=== PATIENT | female | born 1945 | race Caucasian/White ===

== ENCOUNTER 2024-12-21 12:13 | Emergency (ER) | payer MEDICARE, OTHER, SELFPAY ==
--- OUTSIDE RECORDS SUMMARY | 2024-12-15 10:00 | XMS_ITS | Encounter Summary ---
Author Organization [facility] Address [address] [place] [address] Care Team Providers Care It Operations Manager Name Role Phone Evan Johnson MD Primary Care Provider [phone] Reason for Referral * Consultation (Routine) - Authorized Specialty Diagnoses / Procedures Referred By Contac t Referred To Contact Cardiology Diagnoses Chest discomfort Evan Johnson MD [address] [place] [phone] Phone: tel: fax: [facility] - [facility] [address] [facility] [address] [place] [address] Phone: tel: fax: Referral ID Status Reason Start Date Expiration Date Visits Requested Visits Authorized [id number] Authorized Specialty Services Required 12/15/2025 1 1 Reason for Visit * Reason Comments Follow-up Encounter Details Date Type Department Care Team ([facility] st Contact Info) Description 12/15/2024 11:00 AM EDT Office Visit Adult Medicine [address] [phone] Evan Johnson MD [address] [place] [phone] Controlled diabetes mellitus type II without complication (CMS/HCC V24, CMS/HCC V28) (Primary Dx); Essential hypertension, benign; Pure hypercholesterolemia; Chest discomfort Social History Tobacco Use Types Packs/Day Years Used Date Smoking Tobacco: Former Cigarettes Q uit: 02/18/1985 Smokeless Tobacco: Never Alcohol Use Standard Drinks/Week Comments No 0 (1 standard drink = 0.6 oz pur e alcohol) Comments No Sex and Gender Information Value Date Recorded Sex Assigned at Not on file Legal Sex Female 3:56 PM EST Gender Identity Not on file Sexual Orientation Not on file documented as of this encounter Last Filed Vital Signs Vital Sign Reading Time Taken Comments Blood Pressure 138/68 12/15/2024 11:00 AM EDT Pulse 80 12/15/2024 11:00 AM EDT Temperature 36.7 C (98 F) 12/15/2024 11:00 AM EDT Respiratory Rate 16 12/15/2024 11:00 AM EDT Oxygen Saturation 97% 12/15/2024 11:00 AM EDT Inhaled Oxygen Concentration - - Weight 75.3 kg (166 lb) 12/15/2024 11:00 AM EDT Height 170.2 cm (5' 7 ) 12/15/2024 11:00 AM EDT Body Mass Index 26 12/15/2024 11:00 AM EDT documented in this encounter Progress Notes * Shaun Lubin MA - 12/15/2024 11:00 AM EDTAddended by: SHAUN LUBIN on: 12/21/2024 09:10 AM Modules accepted: Orders * Evan Johnson MD - 12/15/2024 11:00 AM EDT CHIEF COMPLAINT: Follow-up IDENTIFIER: Mayra Rocha is a 79 y.o. old female. HPI: Pt presents for evaluation of multiple medical problems. Patient reported few episodes of chest discomfort. Its short lasting, after/during strenuous physical activities, pulling bushes and removing heavy leaves. Patient described the sensation as somewhatburning, lasting short duration with quick resolution. There is no palpitation, dizziness. Patient d enied paroxysmal nocturnal dyspnea increased lower extremity edema. Patient happy that she had successful uneventful cataract surgery. She is compliant with her medications. ROS: GENERAL: Negative for malaise, significant weight loss and fever RESPIRATORY: No cough, wheezing or shortness of breath CARDIOVASCULAR: Negative for chest pain, leg swelling and palpitations GI: Negative for abdominal discomfort, changes in bowel habits, blood in stool or black stools ENDOCRINE: Negative for cold or heat intolerance, polyuria, polydipsia and goiter, See HPI NEURO: No persistent headache, fainting, seizures, strokes, TIAs, weakness, numbness or tingling PAST MEDICAL HISTORY: Patient Active Problem List Diagnosis Date Noted Microalbuminuria 06/15/2024 Overweight 07/12/2017 Obstructive sleep apnea 10/16/2011 Depressive disorder 06/18/2011 Obsessive-compulsive disorder 06/18/2011 Diverticulitis 09/14/2009 Pure hypercholesterolemia 05/21/2005 Controlled diabetes mellitus type II without complication ([facility] V24, [facility] V28) 01/18/2005 Esophageal reflux 01/18/2005 Essential hypertension, benign 01/18/2005 SOCIAL HISTORY: Social History Tobacco Use Smoking status: Former Current packs/day: 0.00 Types: Cigarettes Quit date: 02/18/1985 Years since quittin.8 Smokeless tobacco: Never Substance Use Topics Alcohol use: No FAMILY HISTORY: Family Status Relation Name Status Mother Father Sister dx'd 78 Alive Daughter (Not Specified) MGM (Not Specified) MGF (Not Specified) PGM (Not Specified) PGF (Not Specified) Aunt (Not Specified) Other (Not Specified) Neg Hx (Not Specified) No partnership data on file Family History[1] ACTIVE MEDICATIONS: Medications Taking[2] ALLERGIES: Codeine, Cyclosporine, Epinephrine, Hydromorphone hcl, Lisinopril, Meperidine hcl, Oxycodone-acetaminophen, Phenazopyridine hcl, Propoxyphene hcl, and Sulfa (sulfonamide antibiotics) PHYSICAL EXAM: Blood pressure 138/68, pulse 80, temperature 36.7 ??C (98 ??F), temperature source Temporal, resp. rate 16, height 1.702 m (67 ), weight 75.3 kg (166 lb), SpO2 97%. Body mass index is 26 kg/m??. BMI is greater than 25.0 (above the normal range) - see Plan APPEARANCE: Alert and in no acute distress, smiling, well hydrated, well groomed HEART: Normal S1-S2 LUNG: clear to auscultation bilaterally ABDOMEN: Bowel sounds normoactive, no bruits, soft, non-tender, without organomegaly or palpable masses, and no focal epigastric pain pressure to the epigastrium does not reproduce the burning sensation EXTREMITIES: No edema NEURO: Awake, alert and oriented x 3, reflexes symmetrical, and grossly nonfocal examination SKIN: Skin color, texture, turgor normal. No rashes or lesions. LABS: No results found for: WBC , HGB , HCT , MCV , PLT Lab Results Component Value Date GLUCOSE 129 (H) 06/01/2024 CALCIUM 9.5 06/01/2024 NA 137 06/01/2024 K 4.5 06/01/2024 CO2 27 06/01/2024 CL 105 06/01/2024 BUN 20 06/01/2024 CREATININE 0.83 06/01/2024 Lab Results Component Value Date HGBA1C 6.6 (H) 06/01/2024 HGBA1C 6.5 (H) 01/01/2024 Lab Results Component Value Date MICROALBUR 135.0 (H) 06/01/2024 LDLCALC 52 06/01/2024 CREATININE 0.83 06/01/2024 MICROALBCREA 81 (H) 06/01/2024 Wt Readings from Last 6 Encounters: 12/15/24 75.3 kg (166 lb) 10/07/24 77.1 kg (170 lb) 08/31/24 77.1 kg (170 lb) 06/15/24 77.1 kg (170 lb) 01/14/24 78.5 kg (173 lb) 08/29/23 83.6 kg (184 lb 3.2 oz) BP Readings from Last 6 Encounters: 12/15/24 138/68 10/07/24 139/69 08/31/24 (!) 149/73 06/15/24 128/60 01/14/24 132/54 08/29/23 128/65 EKG in my office showed a normal sinus rhythm and nonspecific ST-T changes. IMPRESSION: No diagnosis found. PLAN: Pt presents for evaluation of multiple medical problems. Patient reported few episodes of chest discomfort. Its short lasting, after/during strenuous physical activities, pulling bushes and removing heavy leaves. Patient described the sensation as somewhatburning, lasting short duration with quick resolution. There is no palpitation, dizziness. Patient d enied paroxysmal nocturnal dyspnea increased lower extremity edema. Patient happy that she had successful uneventful cataract surgery. She is compliant with her medications. 1 I do have concern, significant concern regarding patient's exertional discomfort, chest discomfort described as burning , although I cannot rule out other etiology including muscular skeletal painwith heavy pulling, usually is not described as burning. I proceeded with discussion regarding my concern with patient multiple risk factors, and sometimes cardiac ischemia presents in a typical way for female patient. At the very beginning patient was quite resistant telling me that she has medical knowledge and she feels perfectly fine. After extensive discussion the patient finally agreed for referral to cardiology as a second opinion . Patient declined arrangement for stress testing. I want the patient to avoid strenuous activities, including removing leaves and Brocious as part ofher fall cleanup. We discussed secondary prevention please see below,Warning symptoms discussed that would need immediate reevaluation, including ER visit. 2 mild diabetes, overall well-controlled. Displayed a significant role in my concern for occult occlusive vascular disease. We discussed the diabetic routine care. 3 Patient also presents for a blood pressure check. Patient is tolerating medications well. No specific side effects or complains. Patient is proper medication aimed at maximum protection. 4 I will continue statin Addendum, I reviewed the patient's A1c after completion today, it remains well-controlled. Lab Results Component Value Date HGBA1C 6.5 (H) 12/15/2024 HGBA1C 6.6 (H) 06/01/2024 HGBA1C 6.5 (H) 01/01/2024 No orders of the defined types were placed in this encounter. ADDITIONAL ORDERS: None Evan Johnson MD on 12/15/2024 at 11:24 AM EDT [1] Family History Problem Relation Name Age of Onset Mental illness Mother Diabetes Mother ?BORDERLINE No Known Problems Father Breast cancer Sister dx'd 78 Other (Other: lupus) Daughter Colon cancer Maternal Grandmother No Known Problems Maternal Grandfather No Known Problems Paternal Grandmother No Known Problems Paternal Grandfather Colon cancer Aunt mat side No Known Problems Other Ovarian cancer Neg Hx Uterine cancer Neg Hx [2] Outpatient Medications Marked as Taking for the 12/15/24 encounter (Office Visit) with Evan Johnson MD Medication Sig Dispense Refill amLODIPine (NORVASC) 2.5 mg tablet TAKE 1 TABLET BY MOUTH DAILY. IN ADDITION TO THE 5 MG DAILY FOR A TOTAL OF 7.5 MG DAILY. 90 tablet 1 amLODIPine (NORVASC) 5 mg tablet TAKE 1 TABLET BY MOUTH DAILY. TAKE WITH 2.5 MG FOR A TOTAL DAILY DOSE OF 7.5 MG 90 tablet 1 aspirin 81 mg chewable tablet Chew. B complex-vitamin C-folic acid (ENSSA-EDUARDO) 1-60-300 mg-mg-mcg tablet Take 1 tablet by mouth 1 (one)time each day with breakfast. blood-glucose meter kit Use to test blood sugar three times daily cholecalciferol (VITAMIN D-3) 50 mcg (2,000 unit) capsule Take 1 capsule (2,000 Units total) by mouth 1 (one) time each day. CYANOCOBALAMIN, VITAMIN B-12, ORAL Take by mouth. FLUoxetine (PROzac) 40 mg capsule TAKE 1 CAPSULE BY MOUTH EVERY DAY 90 capsule 1 fluticasone propionate (FLONASE) 50 mcg/actuation nasal spray Administer 2 sprays into affected nostril(s). ketorolac (ACULAR) 0.5 % ophthalmic solution INSTILL 1 DROP INTO LEFT EYE FOUR TIMES A DAY START 2 DAYS BEFORE SURGERY metFORMIN XR (GLUCOPHAGE-XR) 500 mg 24 hr tablet TAKE 2 TABLETS BY MOUTH TWICE A DAY WITH MEALS 360tablet 1 metoprolol succinate (TOPROL-XL) 25 mg 24 hr tablet TAKE 1 TABLET BY MOUTH EVERY DAY 90 tablet 1 Mounjaro 5 mg/0.5 mL injection omeprazole (PriLOSEC) [address] capsule TAKE 1 CAPSULE BY MOUTH EVERY DAY 90 capsule 1 Oxygen Therapy via Nasal Cannula (O2) gas Inhale continuously. via nasal canula simvastatin (ZOCOR) 20 mg tablet TAKE 1 TABLET BY MOUTH EVERYDAY AT BEDTIME 90 tablet 1 valsartan (DIOVAN) 80 mg tablet TAKE 1 TABLET BY MOUTH TWICE A DAY 180 tablet 1 documented in this encounter Plan of Treatment Upcoming Encounters Date Type Department Care Team (Late st Contact Info) Description 03/17/2025 10:15 AM EST Office Visit Adult Medicine [facility] [address] [place], [place] [phone] Siddharth Akins NP [address] [place], [place] 10/07/2025 10:00 AM EDT Office Visit Pulmonology - [place] [address] [facility] [address] [place] [phone] Abby Green MD [address] [place] [phone] Scheduled Orders Name Type Priority Associated Diagnoses Orde r Schedule ECG 12 lead ECG Routine Chest discomfort Ordered: 12/21/2024 Scheduled Referrals Name Type Priority Associated Diagnoses Order Schedule Ambulatory referral to Cardiology Outpatient Referral Routine Chest discomfort Expected: 12/22/2024, Expires: 12/15/2025 documented as of this encounter Results * (ABNORMAL) Hemoglobin A1c (12/15/2024 12:08 PM EDT) Hemoglobin A1C 6.5(H) <6.5 % LAB CHEMISTRY METHOD 12/15/2024 2:37 PM EDT [facility] Mean Bld Glu Estim. 140 mg/dL LAB CHEMISTRY METHOD 12/15/2024 2:37 PM EDT [facility] Blood Venous blood specimen / Unknown Venipuncture / Unknown 12/15/2024 12:08 PM EDT 12/15/2024 12:08 PM EDT Evan Johnson MD LAB BLOOD ORDERABLES Final Resul t [facility] [address] [place] [address], documented in this encounter Visit Diagnoses Diagnosis Controlled diabetes mellitus type II without complication (CMS/HCC V24, CMS/HCC V28)- Primary Essential hypertension, benign Pure hypercholesterolemia Chest discomfort Other chest pain documented in this encounter Discontinued Medications Medication Sig Discontinue Reason Start Date End Da te doxycycline (MONODOX) 100 mg capsule Therapy completed 02/09/2023 12/15/2024 moxifloxacin (VIGAMOX) 0.5 % ophthalmic solution INSTILL 1 DROP INTO LEFT EYE FOUR TIMES A DAY START 1 DAY BEFORE SURGERY Therapy completed 09/07/2024 12/15/2024 Trulicity 0.75 mg/0.5 mL pen injector injection Therapy completed 04/12/2023 025 Trulicity 1.5 mg/0.5 mL pen injector injection Inject 0.5 mL (1.5 mg total) under the skin every 7 (seven) days. Therapy completed 01/01/2023 12/15/2024 Trulicity 3 mg/0.5 mL pen injector injection Therapy completed 06/25/2023 025 vitamin C tablet Take 1 tablet (100 mg total) by mouth 1 (one) time each day. Therapy completed 12/15/2024 documented as of this encounter Care Teams It Operations Manager Relationship Specialty Start Date End Date Evan Johnson MD [address] [place] [address] PCP - General 08/18[birth year]1992 documented as of this encounter
--- NOTE | ~2024-12-21 | CT_ITS ---
CLINICAL HISTORY: left abdominal pain, Hx perforated diverticular d Exam: Contrast-enhanced CT abdomen and pelvis with multiplanar reformats. Comparison: None. Findings: CT abdomen: Lung bases are clear. Liver is free of focal lesions and ductal dilatation. Gallbladder appears unremarkable. Spleen is unremarkable. Pancreas and adrenal glands appear unremarkable. Right kidney reveals a 19 mm upper pole exophytic cyst (4; 212, 5 Hounsfield units). Kidneys otherwise unremarkable. No urolithiasis or hydroureteronephrosis. No free intraperitoneal fluid or retroperitoneal masses or adenopathy. Abdominal aorta is normal caliber with moderate calcific atherosclerosis. Bowel loops reveal no abnormal wall thickening or distention. Remote changes related to partial sigmoid colonic resection are present. Colonic diverticulosis is present, without definitive CT evidence of diverticulitis. There may be a very slightly inflamed epiploic appendage at the level of the splenic flexure of the colon (3; 32 -28 and 4; 245-229), suggesting very mild epiploic appendagitis. CT pelvis: Uterus and adnexal structures appear unremarkable. Urinary bladder is free of gross filling defects. No pelvic masses, fluid or adenopathy. Osseous structures reveal no destructive osseous lesions. Impression: 1. Evidence of mild epiploic appendagitis involving the splenic flexure of the colon. Otherwise, colonic diverticulosis is present, without CT evidence of diverticulitis. This document has been electronically signed by: Khalif Bray MD on 12/21/2024 19:58:01
[2024-12-21 12:52] VITALS: BP 153/66; PULSE 71; RESP 16; TEMP 36.2; O2SAT 97; BMI 26.2
--- NOTE | 2024-12-21 12:52 | ED.GENADULT ---
HPI - General Adult General Chief complaint: Abdominal Pain Stated complaint: Discomfort l calf, multi comp? Time Seen by Provider: 12/21/24 18:20 Source: patient Mode of arrival: ambulatory Limitations: no limitations History of Present Illness ED Provider: DR. Hernandez HPI narrative: 79-year-old female PMH significant for hypertension, diverticular disease. S/p colectomy secondary to perforated diverticulitis few years ago, no other intra-abdominal surgeries patient presented today for evaluation of 2 days of intra-abdominal pain mostly to the left side that is started 2 days ago, no fever, no chills, no nausea, no vomiting, last bowel movement was this morning, passing flatus normally. no dysuria, no frequency urination, no hematuria. Related Data Allergies Allergy/AdvReac Type Severity Reaction Status Date / Time acetaminophen (From Percocet) Allergy Mild UNKNOWN Unverified 11/05/19 14:51 codeine (Codeine) Allergy Mild UNKNOWN Unverified 11/05/19 14:51 epinephrine (Epinephrine) Allergy Mild UNKNOWN Unverified 11/05/19 14:51 lisinopril (Lisinopril) Allergy Mild UNKNOWN Unverified 11/05/19 14:51 meperidine (From Demerol) Allergy Mild UNKNOWN Unverified 11/05/19 14:51 oxycodone (From Percocet) Allergy Mild UNKNOWN Unverified 11/05/19 14:51 propoxyphene (From Darvon) Allergy Mild UNKNOWN Unverified 11/05/19 14:51 Sulfa (Sulfonamide Allergy Vomiting Verified 12/21/24 12:54 Antibiotics) Review of Systems Review of Systems: All other systems are reviewed and are negative Constitutional: Reports as per HPI and Reports no additional constitutional complaints Eyes: Reports as per HPI and Reports no additional eye complaints Reports system reviewed and no additional complaints, except as documented Cardiovascular: Reports as per HPI and Reports no additional cardiovascular complaints Respiratory: Reports as per HPI and Reports no additional respiratory complaints Gastrointestinal: Reports as per HPI and Reports no additional gastrointestinal complaints Genitourinary: Reports no additional female genitourinary complaints Musculoskeletal: Reports no additional musculoskeletal complaints Skin/Breast: Reports system reviewed and no additional complaints, except as docu Psychiatric: Reports no additional psychiatric complaints Endocrine: Reports no additional endocrine complaints Hematologic/Lymphatic: Reports no additional hematologic/lymphatic complaints Allergic/Immunologic: Reports no additional allergic/immunologic complaints Reports system reviewed and no additional complaints, except as documented and Reports Abnormal speech present [facility] Social History Social History Smoked in Last 30 Days: No Use of substances other than those prescribed or required for medical reasons: No Advance Directives: No Advance Directives Information Provided: Yes Physical Exam ED Vital Signs: Vital Signs - 24 hr 12/21/24 12:52 12/21/24 18:06 Temperature 97.2 F 98.0 F Pulse Rate 71 71 Respiratory Rate 16 16 Blood Pressure 153/66 H 173/69 H Pulse Oximetry 97 97 Oxygen Delivery Method Room Air Room Air BMI result Body Mass Index 26.2 Vital signs have been reviewed and appear to be correct. Blood pressure elevated. Heart rate normal. Respiratory rate normal. Temperature normal. Oxygen saturation normal. Appearance: Alert. Oriented X3. No acute distress. Head: Normal external exam. Normocephalic. Atraumatic. No Arzola signs noted. No raccoon eyes noted Eyes: PERRLA. EOMI. Conjunctiva and sclera normal. Eyelids normal. ENT: TM's Normal. Pharynx normal. Uvula midline. Moist mucous membranes. No trismus noted. No drooling noted. No muffled voice noted. Neck: Normal inspection. Neck supple. FROM. No adenopathy. Thyroid Normal. No meningeal signs. No neck mass noted. CVS: Normal heart rate and rhythm. Heart sound normal. No murmurs noted. Pulses normal throughout. Respiratory: No respiratory distress. Painless inspiration. Breath sounds normal. No wheezes/rales/rhonchi noted. Chest nontender. No accessory muscle usage noted or decreased air movement noted. Abdomen: Soft , mild left lower quadrant abdominal tenderness, no rebound tenderness, no guarding. Bowel sounds normal in all 4 quadrants. No distention noted. No organomegaly noted. No visible injury noted. Back: No CVA tenderness. Full range of motion noted. Skin: Skin warm and dry. Normal skin color. Normal skin turgor. No rashes/lesions/lacerations noted. Extremities: No lower extremity edema. Extremities exhibit normal range of motion. Extremities nontender. Neuro: Oriented X 3. Cranial nerve exam: II-XII are grossly intact No motor deficit. No sensory deficit. Reflexes normal. Course Course Course Narrative: Rapid medical examination performed in triage by Ignacia Kothari PA-C: Patient is a 79 year old assigned female at presenting to the emergency department with abdominal pain. Patient has a history of perforated diverticulitis with resulting colectomy. Detailed physical exam and review of systems are deferred to the air pollution control engineer. Labs ordered. Patient placed back in the waiting room pending room availability and results. Reevaluation(s) Reevaluation #1: 79-year-old female came in for evaluation of LLQ abdominal pain x3 days, labs are assuring, CT reveals epiploic appendagitis. Findings were discussed with the patient and patient was reassured for no viscus perforation. Tylenol/NSAIDs if needed for pain, drink plenty of fluids, avoid any food upset systemic until complete healing and follow-up with PCP. Time: 20:21 Medications Administered Discontinued Medications Generic Name Dose Route Start Last Admin Trade Name Freq PRN Reason Stop Dose Admin Iohexol 100 ml 12/21/24 19:22 12/21/24 19:22 Iohexol 350 Mg/Ml 100 Ml Infus..Btl IV 12/21/24 19:23 85 ml ONCE ONE Administration Medical Decision Making Differential Diagnosis Differential Diagnoses: The differential diagnosis associated with the presentation includes ( Diverticulitis, colitis, perforated viscus, acute appendicitis, epiploic appendagitis, lymphadenopathy, dehydration, electrolyte derangement, severe anemia.) Admission/Observation Consideration of admission/observation: Escalation of care including admission/observation considered Lab Data MDM Lab Attestation statement: I reviewed the patient's lab results. 12/21/24 13:37 12/21/24 13:37 Labs: Lab Results 12/21/24 12/21/24 Range/Units 13:37 18:20 WBC 7.6 (4.8-10.8) X10*3/uL RBC 3.89 L (4.20-5.50) X10*6/uL Hgb 11.3 L (12.0-16.0) g/dl Hct 35.2 L (37.0-47.0) % MCV 90.5 (80.0-98.0) fL MCH 29.0 (27.0-33.0) pg MCHC 32.1 (31.0-35.0) g/dl RDW 12.0 (11.0-16.0) % Plt Count 264 (160-400) X10*3/uL MPV 9.8 (9.4-12.3) fL Immature Gran % (Auto) 0.3 (0.0-0.4) % Neut % (Auto) 56.6 (45-73) % Lymph % (Auto) 33.4 (20-40) % Ross % (Auto) 7.0 (2-11) % Eos % (Auto) 1.9 (0-4) % Baso % (Auto) 0.8 (0-2) % Lymph # (Auto) 2.5 (1.2-4.9) X10*3/uL Ross # (Auto) 0.5 (0.1-1.2) X10*3/uL Eos # (Auto) 0.1 (0.0-0.4) X10*3/uL Baso # (Auto) 0.1 (0.0-0.2) X10*3/uL Abs Immat Gran (auto) 0.02 (0.00-0.03) X10*3/uL Absolute Neuts (auto) 4.3 (2.0-8.3) x10*3/uL Absolute Nucleated RBC 0.000 (0.0-0.012) X10*3/uL Nucleated RBC % (auto) 0.0 (0.0-0.2) /100WBC Sodium 141 (135-145) mmol/L Potassium 4.1 (3.3-5.1) mmol/L Chloride 104 (96-108) mmol/L Carbon Dioxide 28 (22-29) mmol/L Anion Gap 13 (12-20) BUN 18 H (9-16) mg/dL Creatinine 1.22 (0.5-1.4) mg/dL Estim Creat Clear Calc 39.7 Estimated GFR 43 Random Glucose 101 (60-115) mg/dL Calcium 9.6 (8.4-10.2) mg/dL Magnesium 2.0 (1.6-2.6) mg/dL Total Bilirubin 0.2 (0.0-1.0) mg/dL AST 25 (5-31) U/L ALT 22 (0-31) U/L Alkaline Phosphatase 87 (39-117) U/L Total Protein 7.4 (6.5-8.0) g/dL Albumin 4.4 (3.5-5.0) g/dL Urine Color Yellow Urine Appearance Clear Urine pH 7.0 (5.0-9.0) Ur Specific [place] 1.010 (1.005-1.025) Urine Protein Negative (Neg-Trace) mg/dL Urine Glucose (UA) Negative (Negative) mg/dL Urine Ketones Negative (Negative) mg/dL Urine Blood Negative (Negative) Urine Nitrite Negative (Negative) Ur Leukocyte Esterase Small (1+) H (Negative) Urine RBC 0-2 (0-2) /HPF Urine WBC 6-10 H (0-5) /HPF Ur Squamous Epith Cells 0-2 (0-2) /HPF Urine Bacteria None Seen (None Seen) Hyaline Casts 0-2 (0-2) /LPF Independent Interpretation I performed an independent interpretation of an: CT Scan ( Abdomen and pelvis:1. Evidence of mild epiploic appendagitis involving the splenic flexure of the colon. Otherwise, colonic diverticulosis is present, without CT evidence of diverticulitis.) Radiology Impression Discussion of test interpretation with radiology: I have reviewed the radiologist's reading. Discharge Plan Discharge Clinical Impression: Epiploic appendagitis, Abdominal pain Patient Disposition: Home, Self-Care Instructions: Abdominal Pain (ED), Epiploic Appendagitis (ED) Additional Instructions: take [id number] ibuprofen 200 mg tablet or Tylenol 500 mg tablet every 6 hours if needed for pain. Avoid spicy, or greasy food. Seek immediate medical attention if pain persist or becoming worst. Referrals: Evan Johnson MD [Primary Care Provider, Medical] Print Language: Bulgarian
[2024-12-21 13:47] LABS: MANUAL DIFF FLAG NO
[2024-12-21 13:49] LABS: Hematocrit 35.2 % (37.0-47.0); Hemoglobin 11.3 g/dl (12.0-16.0); Imm Gran Abs Auto 0.02 X10*3/uL (0.00-0.03); Imm Gran Pct Auto 0.3 % (0.0-0.4); Lymphocytes Absolute Auto 2.5 X10*3/uL (1.2-4.9); Mean Corpuscular HGB Conc 32.1 g/dl (31.0-35.0); Mean Corpuscular Hemoglobin 29.0 pg (27.0-33.0); Mean Corpuscular Volume 90.5 fL (80.0-98.0); NRBC Abs Auto 0.000 X10*3/uL (0.0-0.012); NRBC Pct Auto 0.0 /100WBC (0.0-0.2); Platelet Count 264 X10*3/uL (160-400); Red Blood Count 3.89 X10*6/uL (4.20-5.50); White Blood Count 7.6 X10*3/uL (4.8-10.8)
[2024-12-21 14:03] LABS: Alanine Aminotransferase 22 U/L (0-31); Albumin Level 4.4 g/dL (3.5-5.0); Alkaline Phosphatase 87 U/L (39-117); Anion Gap 13 (12-20); Aspartate Amino Transferase 25 U/L (5-31); Blood Urea Nitrogen 18 mg/dL (9-16); Calcium 9.6 mg/dL (8.4-10.2); Carbon Dioxide 28 mmol/L (22-29); Chloride 104 mmol/L (96-108); Creatinine Clr Calc Pharmacy 39.7; Estimated Glomerular Filt Rate 43; Magnesium 2.0 mg/dL (1.6-2.6); Potassium 4.1 mmol/L (3.3-5.1); Sodium 141 mmol/L (135-145); Total Protein 7.4 g/dL (6.5-8.0)
[2024-12-21 18:06] VITALS: BP 173/69; PULSE 71; RESP 16; TEMP 36.7; O2SAT 97
--- OUTSIDE RECORDS SUMMARY | 2024-12-21 18:24 | XMS_ITS | Clinical Summary ---
Author Organization [facility] [address] [place] [address] [place] [phone] Phone Care Team Providers Care Drapery Hemmer Automatic Name Role Phone Evan Jhonson MD Primary Care Provider [phone] Allergies Active Allergy Reactions Criticality Noted Date Comments Codeine 01/18/2005 Cyclosporine Itching 05/24/2022 Epinephrine Other 01/18/2005 Crawly feeling Hydromorphone Hcl Headache 12/02/2009 Lisinopril 01/18/2005 cough Meperidine Hcl 01/18/2005 Oxycodone-Acetaminophen 01/18/2005 Phenazopyridine Hcl Nausea And Vomiting 012 Propoxyphene Hcl 01/18/2005 Sulfa (Sulfonamide Antibiotics) Nausea And Vomiting 04/04/2011 Medications cholecalciferol (VITAMIN D-3) 50 mcg (2,000 unit) capsule Take 1 capsule (2,000 Units total) by mouth 1 (one) time each day. Active aspirin 81 mg chewable tablet Chew. Acti ve fluticasone propionate (FLONASE) 50 mcg/actuation nasal spray Administer 2 sprays into affected nostril(s). 05/25/19 23 Active Mounjaro 5 mg/0.5 mL injection 10/03/19 24 Active blood-glucose meter kit Use to test blood sugar three times daily 05/11/19 18 Active medical supply, miscellaneous (MISCELLANEOUS MEDICAL SUPPLY MISC) CPAP Inhale 8 cm into the lungs at bedtime. Via nasal pillow, [employer] Active CYANOCOBALAMIN, VITAMIN B-12, ORAL Take by mouth. Activ e amLODIPine (NORVASC) 2.5 mg tablet TAKE 1 TABLET BY MOUTH DAILY. IN ADDITION TO THE 5 MG DAILY FOR A TOTAL OF 7.5 MG DAILY. 90 tablet 1 08/11/19 25 Active Oxygen Therapy via Nasal Cannula (O2) gas Inhale continuously. via nasal canula Active B complex-vitamin C-folic acid (NESSA-EDUARDO) 1-60-300 mg-mg-mcg tablet Take 1 tablet by mouth 1 (one) time each day with breakfast. Active simvastatin (ZOCOR) 20 mg tablet TAKE 1 TABLET BY MOUTH EVERYDAY AT BEDTIME 90 tablet 1 09/22/19 25 Active FLUoxetine (PROzac) 40 mg capsule TAKE 1 CAPSULE BY MOUTH EVERY DAY 90 capsule 1 09/30/19 25 Active omeprazole (PriLOSEC) [address] capsule TAKE 1 CAPSULE BY MOUTH EVERY DAY 90 capsule 1 09/30/19 25 Active glucose blood (Embrace TALK test strips) test strip 1 each by Other route daily. Active ketorolac (ACULAR) 0.5 % ophthalmic solution INSTILL 1 DROP INTO LEFT EYE FOUR TIMES A DAY START 2 DAYS BEFORE SURGERY 09/08/19 25 Active valsartan (DIOVAN) 80 mg tabletIndications :Essential (primary) hypertension,Type 2 diabetes mellitus without complications (CMS/HCC V24, CMS/HCC V28) TAKE 1 TABLET BY MOUTH TWICE A DAY 180 tablet 1 10/31/19 25 Active amLODIPine (NORVASC) 5 mg tablet TAKE 1 TABLET BY MOUTH DAILY. TAKE WITH 2.5 MG FOR A TOTAL DAILY DOSE OF 7.5 MG 90 tablet 1 10/31/19 25 Active metoprolol succinate (TOPROL-XL) 25 mg 24 hr tablet TAKE 1 TABLET BY MOUTH EVERY DAY 90 tablet 1 10/31/19 25 Active metFORMIN XR (GLUCOPHAGE-XR) 500 mg 24 hr tabletIndications :Essential (primary) hypertension,Type 2 diabetes mellitus without complications (CMS/HCC V24, CMS/HCC V28) TAKE 2 TABLETS BY MOUTH TWICE A DAY WITH MEALS 360 tablet 1 10/31/19 25 Active doxycycline (MONODOX) 100 mg capsule 02/10/20 23 025 Discontin ued(Thera py completed ) vitamin C tablet Take 1 tablet (100 mg total) by mouth 1 (one) time each day. 025 Discontin ued(Thera py completed ) Trulicity 0.75 mg/0.5 mL pen injector injection 04/12/19 24 025 Discontin ued(Thera py completed ) Trulicity 1.5 mg/0.5 mL pen injector injection Inject 0.5 mL (1.5 mg total) under the skin every 7 (seven) days. 01/02/20 23 025 Discontin ued(Thera py completed ) Trulicity 3 mg/0.5 mL pen injector injection 06/25/19 24 025 Discontin ued(Thera py completed ) moxifloxacin (VIGAMOX) 0.5 % ophthalmic solution INSTILL 1 DROP INTO LEFT EYE FOUR TIMES A DAY START 1 DAY BEFORE SURGERY 09/08/19 025 Discontin ued(Thera py completed ) Active Problems Problem Noted Date Diagnosed Date Microalbuminuria 06/15/2024 Overweight 07/12/2017 Obstructive sleep apnea 10/16/2011 Depressive disorder 06/18/2011 Obsessive-compulsive disorder 06/18/2011 Overview (12/26/2023): IMO update Diverticulitis 09/14/2009 Overview (12/26/2023): 2009, see GI note 07/05/09, s/p lap colectomy Pure hypercholesterolemia 05/21/2005 Controlled diabetes mellitus type II without complication (CMS/[facility] V24, [facility] V28) 01/18/2005 Overview (12/26/2023): Last Assessment & Plan: Checking Your Blood Sugars Please check your blood sugars every day. Please check your sugars at the following times of day: before breakfast and before bedtime Your Blood Sugar Goals Pre Meal: 90-130 2 hours after meals: 110-160 Bedtime: 110-150 Use the Results Bring your glucometer to every appointment Write your fingerstick blood sugars down on a log sheet or record book. Bring them to your appointment Look for patterns in the numbers. The results help you and your provider make decisions about your diabetes treatment plan. Your Results and your Goals Your Result / Date of Completion Your Goal / How Often to Assess Component Value Date HGBA1C 6.7 04/28/2012 Less than 7%--- 2-4 times per year BP Readings from Last 1 Encounters: 11/06/12 131/71 Less than 130/80--- once per year Component Value Date LDL 99 04/28/2012 LDL less than 100--- once per year Component Value Date MALBUR 4.0 04/28/2012 Less than 30--- once per year Wt Readings from Last 1 Encounters: 11/06/12 184 lb 14.4 oz (83.87 kg) Your goal weight by next visit: 180 --- reassess 2-4 times a year Health Maintenance Due Topic Date Due ? Zostavax Immunization: Age 60+ 2005 ? Diabetes: Annual Care Plan 04/22/2012 ? Diabetes: Blood Sugar Control Test (Hgba1c) 08/28/2012 ? Flu Shot 10/19/2012 ? Diabetes: Annual Eye Exam 10/22/2012 Your Action Plan Your diabetes is well controlled and no changes are required to your current plan. Check blood glucose as directed and write down all results. Continue to work on weight loss with a goal of losing 2-4 pounds per month Contact me if you experience any barriers to care such as inability to purchase your medication, difficulty getting to your appointments or difficulty understanding your care plan When to Call your Healthcare Provider If your blood sugar falls below 70 and you do not know why or you become unconscious If you are sick and unable to take liquids because or nausea or vomiting If you have a fever over 101 If your blood sugar is 300 or higher on greater than 3 separate occasions during the same week If you are just unsure what to do Educational Resources [place] [employer] (www.diabetes.org) Centers for Disease Control and Prevention (www.cdc.gov/diabetes) This care plan was created in collaboration with Mayra Rocha on 11/06/2012 Esophageal reflux 01/18/2005 Overview (12/26/2023): EGD Dr. acuna 08/14/06 Essential hypertension, benign 01/18/2005 Encounters Date Type Department Care Team Description 12/21/2024 Telephone Adult Medicine [address] [phone] Evan Johnson MD 12/15/2024 11:00 AM EDT Office Visit Adult Medicine [address] [phone] Evan Johnson MD Controlled diabetes mellitus type II without complication (CMS/HCC V24, CMS/[facility] V28) (Primary Dx); Essential hypertension, benign; Pure hypercholesterolemia ; Chest discomfort 12/11/2024 8:39 AM EDT - 12/11/2024 11:59 PM EDT Hospital Encounter Radiology Department [address] [phone] Encounter for screening mammogram for breast cancer Discharge Disposition: Home or Self Care 10/07/2024 11:00 AM EDT Office Visit Pulmonology - [place] [address] [facility] [address] [place] [address] Abby Green MD Obstructive sleep apnea (Primary Dx); Nocturnal hypoxemia from Last 3 Months Immunizations Immunization Administration Dates Next Due Influenza Quadravalent, 0.5m l (Fluad) 65yo and older 12/29/2021,12/15/2020 Influenza Quadravalent, 0.5m l (Fluzone High-dose) 65yo and older 12/05/2023,12/24/2019 Influenza trivalent, 0.5mL ( Fluad) 65yo and older 11/22/2022,12/29/2021,12/15/2020,12/06,11/09/2016,12/04/2015 Influenza trivalent, 0.5mL ( Fluzone High-dose) 65yo and older 10/28/2024,11/22/2022,12/08/2018,12/06,11/09/2016,12/04/2015 Influenza trivalent, 0.5mL, preservative free (Fluarix; FluLaval; Fluzone) ages 6mo and older (Afluria) 3 years and older 12/01/2014,11/26/2013,11/06/2012,12/21 Influenza trivalent, with pr eservative (Fluzone; Afluria) 6mo and older 12/01/2014,11/26/2013,11/06/2012,12/21 Influenza, Unspecified 12/24/2019 Pneumococcal conjugate 20 va lent (Prevnar 20, PCV 20) 2mo and older 11/22/2022 Pneumococcal polysaccharide 23 valent (Pneumovax 23) 2yo and older 05/06/2012 Td Tetanus diptheria (Tdvax) 7yo and older 09/11/2017 Tdap Tetanus diptheria acell ular pertussis (Boostrix; Adacel) 7yo and older 11/06/2006 Surgical History Surgery Date Site/Laterality Comments OTHER SURGICAL HISTORY PROCEDURE: ARTHROSCOPY PROCEDURE NEC; COMMENT: left ankle OTHER SURGICAL HISTORY 2008 PROCEDURE: CO COLECTOMY PARTIAL W/ANASTOMOSIS; COMMENT: left side due to diverticulitis ANKLE FRACTURE SURGERY Left PROCEDURE: CO OPEN TREATMENT MEDIAL MALLEOLUS FRACTURE BREAST BIOPSY Left PROCEDURE: BX BREAST; PERC NEEDLE CORE W/IMAG GUID; COMMENT: asp COLONOSCOPY 03/22/2021 PROCEDURE: HISTORICAL COLONOSCOPY; COMMENT: hyperplastic polyp Medical History Medical History Date Comments Pure hypercholesterolemia 05/21/2005 DX:Pur e hypercholesterolemia Depressive disorder, not els ewhere classified DX:Depressive disorder, not elsewhere classified Esophageal reflux 01/18/2005 DX:Esophageal reflux; COMMENT: EGD Dr. acuna 08/14/06 Bipolar I disorder, most rec ent episode (or current) unspecified 01/18/2005 DX:Bipolar I disorder , most recent episode (or current) unspecified Type II or unspecified type diabetes mellitus with unspecified complication, not stated as uncontrolled DX:Type II or unspecified ty pe diabetes mellitus with unspecified complication, not stated as uncontrolled Type II or unspecified type diabetes mellitus without mention of complication, not stated as uncontrolled 01/18/2005 DX:Type II or unspecified ty pe diabetes mellitus without mention of complication, not stated as uncontrolled Essential hypertension, benign 01/18/2005 D X:Essential hypertension, benign Bacterial pneumonia, unspecified DX:Bacterial pneumonia, unspecified Diverticulitis 09/14/2009 DX:Diverticuliti s OCD (obsessive compulsive disorder) DX:OCD (obsessive compulsive disorder) Sleep apnea DX:Sleep apnea Family History Medical History Relation Name Comments Colon cancer Aunt mat side Other: lupus Daughter No Known Problems Father No Known Problems Maternal Grandfather Colon cancer Maternal Grandmother Diabetes Mother ?BORDERLINE Mental illness Mother No Known Problems Other No Known Problems Paternal Grandfather No Known Problems Paternal Grandmother Breast cancer Sister dx'd 78 Ovarian cancer Neg Hx Uterine cancer Neg Hx Relation Name Status Comments Aunt Daughter Father Maternal Grandfather Maternal Grandmother Mother Other Paternal Grandfather Paternal Grandmother Sister dx'd 78 Alive Social History Tobacco Use Types Packs/Day Years [...] on file Sexual Orientation Not on file Obstetrics History Para Term AB IAB SAB Ectopic Multiple Livin g Live Births 2 2 2 2 Date Outcome GA Total Labor Labor/2nd/3rd Weight Sex Type Anes PTL Natali A1 A5 Name Clin Term Term Last Filed Vital Signs Vital Sign Reading [...] Mass Index 26 12/15/2024 11:00 AM EDT Plan of Treatment Upcoming Encounters Date Type Department Care Team (Late st Contact Info) Description 03/17/2025 10:15 AM EST Office Visit Adult Medicine [facility] [address] [place], [place] [phone] Siddharth Akins NP [address] [place], [place] 10/07/2025 10:00 AM EDT Office Visit Pulmonology - [address] [place] [phone] Abby Green MD [address] [place] [phone] Health Maintenance Due Date Last Done Comments Zoster Vaccines (1 of 2) 08/09/1995 RSV Immunization Adult Patients (1 - 1-dose 75+ series) 2020 Social Influencers of Health Screening 01/27/2022 Diabetes: Annual Retina Eye Exam 01/25/2024 01/24/2023 Depression Screening 02/19/2024 02/28/2023 Falls Risk Assessment 02/29/2024 02/28/2023, 024 Medicare Annual Wellness Visit 02/29/2024 02/28/2023 Diabetes: Annual Foot Exam 06/03/2024 06/04/2023 COVID-19 Vaccine ( season) 2024 12/12/2023, 01/04/2021, 04/14/2020 Diabetes: Annual Urine Albumin-Creatinine Ratio (uACR) 06/01/2025 06/01/2024, 01/01/2024, 10/14/2023, Additional history exists Diabetes: Annual GFR (Glomerular Filtration Rate) 06/01/2025 06/01/2024, 10/14/2023 Hypertension/CHF/CAD Annual BMP Blood Test 06/01/2025 06/01/2024, 10/14/2023 Diabetes: Blood Sugar Control Test (HGBA1C) 06/15/2025 12/15/2024, 06/01/2024, 01/01/2024 Colorectal Cancer Screening: Colonoscopy 03/22/2026 03/22/2021 DTaP,Tdap,and Td Vaccines (3 - Td or Tdap) 09/12/2027 09/11/2017, 11/06/2006 Cholesterol Screening (Lipid Panel) 06/01/2029 06/01/2024, 01/01/2024, 10/14/2023 Osteoporosis Screening (Bone Density Screening) 05/24/2032 05/24/2022, 10/27/2019 Hepatitis C Screening Completed 04/28/2012 Pneumococcal Vaccine: 50+ Years Completed 11/22/2022, 05/06/2012 Influenza Vaccine Completed 10/28/2024, , 11/22/2022, Additional history exists HIB Vaccines Aged Out No longer eligi ble based on patient's age to complete this topic HPV Vaccines Aged Out No longer eligi ble based on patient's age to complete this topic Hepatitis A Vaccines Aged Out No long er eligible based on patient's age to complete this topic Hepatitis B Vaccines Aged Out No long er eligible based on patient's age to complete this topic IPV Vaccines Aged Out No longer eligi ble based on patient's age to complete this topic MMR Vaccines Aged Out No longer eligi ble based on patient's age to complete this topic Meningococcal ACWY Vaccine Aged Out N o longer eligible based on patient's age to complete this topic Meningococcal B Vaccine Aged Out No l onger eligible based on patient's age to complete this topic RSV Immunization Patients Under 20 months Aged Out No longer eligible based on patient's age to complete this topic Varicella Vaccines Aged Out No longer eligible based on patient's age to complete this topic Procedures Procedure Name Priority Date/Time Associated Diagnosis Comments HEMOGLOBIN A1C Routine 12/15/2024 12:08 PM EDT Controlled diabetes mellitus type II without complication ([facility] V24, CMS/[facility] V28) MG MAMMO DIGITAL SCREENING W CHALINO BILAT Routine 12/11/2024 9:02 AM EDT Encounter for screening mammogram for breast cancer MICROALBUMIN CREATININE URINE RATIO Routine 06/01/2024 9:28 AM EDT Essential hypertension, benign Pure hypercholesterolemia Controlled type 2 diabetes mellitus without complication, without long-term current use of insulin (CMS/[facility] V24, CMS/[facility] V28) COMPREHENSIVE METABOLIC PANEL Routine 06/01/2024 9:16 AM EDT Essential hypertension, benign Pure hypercholesterolemia LIPID PANEL WITH REFLEX TO DIRECT LDL Routine 06/01/2024 9:16 AM EDT Essential hypertension, benign Pure hypercholesterolemia DIABETES FOOT EXAM Routine 06/04/2023 DEPRESSION SCREENING Routine 02/28/2023 FALLS RISK ASSESSMENT Routine 02/28/2023 DIABETES EYE EXAM Routine 01/24/2023 DXA BONE DENSITY STUDY 1+ SITS AXIAL SKEL Routine 05/24/2022 1:56 PM EDT Asymptomatic menopausal state COLONOSCOPY Routine 03/22/2021 HEPATITIS C SCREENING Routine 04/28/2012 from Last 3 Months or Most Recently Relevant to Health Maintenance Results * (ABNORMAL) Hemoglobin A1c (12/15/2024 12:08 PM EDT) Hemoglobin A1C 6.5(H) <6.5 % LAB CHEMISTRY METHOD 12/15/2024 2:37 PM EDT [facility] Mean Bld Glu Estim. 140 mg/dL LAB CHEMISTRY METHOD 12/15/2024 2:37 PM EDT [facility] Blood Venous blood specimen / Unknown Venipuncture / Unknown 12/15/2024 12:08 PM EDT 12/15/2024 12:08 PM EDT us Evan Johnson MD LAB BLOOD ORDERABLES Final Resul t [facility] [address] [place] [address], * MG Mammo Digital Screening w Chalino bilat (12/11/2024 9:02 AM EDT) Anatomical Region Laterality Modality Breast Bilateral Mammography 12/14/2024 2:35 PM EDT Impressions 12/14/2024 2:40 PM EDT 1. No mammographic evidence of malignancy 2. Scattered fibroglandular tissue BI-RADS CATEGORY: 2 - BENIGN RECOMMENDATION: Screening bilateral mammogram is recommended in 1 year. Mammo Location: [facility], [address] [place] [address], [phone], . -------- FINAL REPORT -------- Dictated By: Michael Cespedes Dictated Date: 12/14/2024 14:35 ET Assigned Physician: Michael Cespedes Reviewed and Electronically Signed By: Michael Cespedes Signed Date: 12/14/2024 14:40 ET Workstation ID: [id number] Transcribed By: Self Edit Transcribed Date: 12/14/2024 14:35 ET Narrative 12/14/2024 2:40 PM EDT A BILATERAL DIGITAL 3D SCREENING MAMMOGRAPHY HISTORY: Routine screening. Family history of breast cancer in sister. COMPARISON: Multiple priors dating back to 11/01/2020 Technique: Bilateral full field digital mammography (3D) was performed using standard CC and MLO projections CAD was used to evaluate this mammogram. FINDINGS: Right: No suspicious masses, groups of microcalcification or areas of architectural distortion identified. Stable typically benign parenchymal asymmetries. Left: No suspicious masses, groups of microcalcification or areas of architectural distortion identified. Stable typically benign parenchymal asymmetries. BREAST DENSITY: B - There are scattered areas of fibroglandular density. Procedure Note Michael Cespedes MD - 12/14/2024 A BILATERAL DIGITAL 3D SCREENING MAMMOGRAPHY HISTORY: Routine screening. Family history of breast cancer in sister. COMPARISON: Multiple priors dating back to 11/01/2020 Technique: Bilateral full field digital mammography (3D) was performedusing standard CC and MLO projections CAD was used to evaluate this mammogram. FINDINGS: Right: No suspicious masses, groups of microcalcification or areas ofarchitectural distortion identified. Stable typically benign parenchymalasymmetries. Left: No suspicious masses, groups of microcalcification or areas ofarchitectural distortion identified. Stable typically benign parenchymalasymmetries. BREAST DENSITY: B - There are scattered areas of fibroglandular density. IMPRESSION: 1. No mammographic evidence of malignancy 2. Scattered fibroglandular tissue BI-RADS CATEGORY: 2 - BENIGN RECOMMENDATION: Screening bilateral mammogram is recommended in 1 year. Mammo Location: [facility], [address] [place] [address], [phone], . -------- FINAL REPORT -------- Dictated By: Michael Cespedes Dictated Date: 12/14/2024 14:35 ET Assigned Physician: Michael Cespedes Reviewed and Electronically Signed By: Michael Cespedes Signed Date: 12/14/2024 14:40 ET Workstation ID: [id number] Transcribed By: Self Edit Transcribed Date: 12/14/2024 14:35 ET us Evan Johnson MD IMG BI PROCEDURES Final Result * (ABNORMAL) Microalbumin creatinine urine ratio (06/01/2024 9:28 AM EDT) Creatinine, Urine 166.0 mg/dL LAB CHEMISTRY METHOD 06/01/2024 6:36 PM EDT [facility] Microalb, Ur 135.0(H) 0.0 - 29.0 mg/L LAB CHEMISTRY METHOD 06/01/2024 6:36 PM EDT [facility] Microalb/Crea t Ratio 81(H) <30 mg/g creat LAB CHEMISTRY METHOD 06/01/2024 6:36 PM EDT [facility] Urine Urine specimen obtained by clean catch procedure / Unknown Non-blood Collection / Unknown 06/01/2024 9:28 AM EDT 06/01/2024 9:28 AM EDT us Evan Johnson MD LAB URINE ORDERABLES Final Resul t [facility] [address] [place] [address], [place] [phone] * Lipid panel with reflex to direct LDL (06/01/2024 9:16 AM EDT) Cholesterol 117 0 - 200 mg/dL LAB CHEMISTRY METHOD 06/01/2024 4:12 PM EDT [facility] Triglycerides 92 0 - 150 mg/dL LAB CHEMISTRY METHOD 06/01/2024 4:12 PM EDT [facility] HDL 47 >=40 mg/dL LAB CHEMISTRY METHOD 06/01/2024 4:12 PM EDT [facility] LDL Calculated 52 0 - 100 mg/dL LAB CHEMISTRY METHOD 06/01/2024 4:12 PM EDT [facility] VLDL Cholesterol Brian 18.4 mg/dL LAB CHEMISTRY METHOD 06/01/2024 4:12 PM [facility] Non HDL Chol. (LDL+VLDL) 70 <145 mg/dL LAB [facility] Chol/HDL Ratio 2.5 0.0 - 4.4 LAB CHEMISTRY METHOD 06/01/2024 4:12 PM T [facility] Blood Venous blood specimen / Unknown Venipuncture / Unknown 06/01/2024 9:16 AM EDT 06/01/2024 9:16 AM EDT us Evan Johnson MD LAB BLOOD ORDERABLES Final Resul t [facility] [address] [place] [address], * (ABNORMAL) Comprehensive metabolic panel (06/01/2024 9:16 AM EDT) Sodium 137 133 - 145 mmol/L LAB CHEMISTRY METHOD 06/01/2024 4:12 PM [facility] Potassium 4.5 3.5 - 5.5 mmol/L LAB CHEMISTRY METHOD 06/01/2024 4:12 PM [facility] Chloride 105 96 - 110 mmol/L LAB CHEMISTRY METHOD 06/01/2024 4:12 PM [facility] CO2 27 21 - 32 mmol/L LAB CHEMISTRY METHOD 06/01/2024 4:12 PM [facility] Anion Gap 5 3 - 11 LAB CHEMISTRY METHOD 06/01/2024 4:12 PM [facility] Glucose 129(H) 70 - 100 mg/dL LAB CHEMISTRY METHOD 06/01/2024 4:12 PM [facility] BUN 20 5 - 25 mg/dL LAB CHEMISTRY METHOD 06/01/2024 4:12 PM [facility] Creatinine 0.83 0.50 - 1.10 mg/dL LAB CHEMISTRY METHOD 06/01/2024 4:12 PM [facility] eGFR 72 >=60 mL/min/1. 73m2 LAB CHEMISTRY METHOD 06/01/2024 4:12 PM [facility] Comment:Calculation based on the Chronic Kidney Disease Epidemiology Collaboration (CKD-EPI) equation refit without adjustment for race. BUN/Creatinine Ratio 24.1 LAB CHEMISTRY METHOD 06/01/2024 4:12 PM [facility] Calcium 9.5 8.5 - 10.5 mg/dL LAB CHEMISTRY METHOD 06/01/2024 4:12 PM [facility] AST (SGOT) 18 10 - 42 unit/L LAB CHEMISTRY METHOD 06/01/2024 4:12 PM [facility] ALT (SGPT) 26 10 - 60 unit/L LAB CHEMISTRY METHOD 06/01/2024 4:12 PM [facility] Alkaline Phosphatase 99 42 - 121 unit/L LAB CHEMISTRY METHOD 06/01/2024 4:12 PM [facility] Total Protein 7.3 6.0 - 8.0 g/dL LAB CHEMISTRY METHOD 06/01/2024 4:12 PM [facility] Albumin 3.9 3.2 - 5.0 g/dL LAB CHEMISTRY METHOD 06/01/2024 4:12 PM [facility] Total Bilirubin 0.3 0.0 - 1.4 mg/dL LAB CHEMISTRY METHOD 06/01/2024 4:12 PM [facility] Blood Venous blood specimen / Unknown Venipuncture / Unknown 06/01/2024 9:16 AM EDT 06/01/2024 9:16 AM EDT Evan Johnson MD LAB BLOOD ORDERABLES Final Resul t [facility] ([facility]) [facility] [address] [place] [address], [place] [phone] * Diabetes Foot Exam (06/04/2023) [facility] Diabetes: Annual Foot Exam Abstracted Historical Provider HEALTH MAINTENANCE Final Result * Falls Risk Assessment (02/28/2023) [facility] Falls Risk Assessment Abstracted [facility] Provider [place] HEALTH MAINTENANCE Final Result * Depression Screening (02/28/2023) [facility] Depression Screening Abstracted [facility] Provider HEALTH MAINTENANCE Final Result * Diabetes Eye Exam (01/24/2023) [facility] Diabetes: Annual Retina Eye Exam Abstracted Result [facility] Provider [place] HEALTH MAINTENANCE Final Result * DXA BONE DENSITY STUDY 1+ SITS AXIAL SKEL (05/24/2022 1:56 PM EDT) Anatomical Region Laterality Modality Bone Densitometr y 05/24/2022 1:22 PM EDT Narrative 05/24/2022 2:43 PM EDT BONE DENSITY (DEXA) Lumbar Spine T-score is 0.0. (SD relative to 20-29 y/o adult) Z-score is 2.5. (SD relative to age matched peers) This is considered normal by WHO criteria. Left Hip T-score is -1.2. Z-score is 1.0. This is considered osteopenia by WHO criteria. IMPRESSION: This patient is considered have osteopenia by WHO criteria. This patient has a 17% risk of major osteoporotic fracture and a 2.8% risk of hip fracture over the next 10 years. (World Health Organization Fracture Risk Assessment) [facility] Department of Internal Medicine recommends using National Osteoporosis Foundation (NOF) guidelines in treatment decisions related to osteoporosis. NOF guidelines suggest considering treatment for postmenopausal women and men aged 50 or older presenting with the following: History of hip or vertebral fracture. T-score = -2.5 (DXA) at the femoral neck, total hip, or spine, after appropriate evaluation to exclude secondary causes. Low bone mass (T-score between -1.0 and -2.5 at the femoral neck or spine) AND a 10-year probability of a hip fracture = 3% OR a 10-year probability of a major osteoporosis-related fracture = 20% based on the [place]-adapted WHO algorithm Please note that all treatment decisions require clinical judgment and consideration of individual patient factors, including patient preferences, co-morbidities, previous drug use, risk factors not captured in the FRAX model (e.g., frailty, falls, vitamin D deficiency, increased bone turnover, interval significant decline in bone density) and possible under- or over-estimation of fracture risk by FRAX. Optional alternative screening schedule based on aure Bae., [facility] March 08, 2011 for patients with osteopenia (based on hip BMD T-score) is as follows: * advanced osteopenia (T scores -2.00 to -2.49), BMD testing every year * moderate osteopenia (T scores -1.50 to -1.99), BMD testing every 5 years mild osteopenia or normal BMD (T scores -1.50 and higher), BMD testing every 15 years Procedure Note Mckenzie Patel MD - 03/25/2023 BONE DENSITY (DEXA) Lumbar Spine T-score is 0.0. (SD relative to 20-29 y/o adult) Z-score is 2.5. (SD relative to age matched peers) This is considered normal by WHO criteria. Left Hip T-score is -1.2. Z-score is 1.0. This is considered osteopenia by WHO criteria. IMPRESSION: This patient is considered have osteopenia by WHO criteria. This patienthas a 17% risk of major osteoporotic fracture and a 2.8% risk of hip fracture over the next10 years. (World Health Organization Fracture Risk Assessment) [facility] Department of Internal Medicine recommendsusing National Osteoporosis Foundation (NOF) guidelines in treatment decisions related toosteoporosis. NOF guidelines suggest considering treatment for postmenopausal women and menaged 50 or older presenting with the following: History of hip or vertebral fracture. T-score = -2.5 (DXA) at the femoral neck, total hip, or spine, afterappropriate evaluation to exclude secondary causes. Low bone mass (T-score between -1.0 and -2.5 at the femoral neck or spine)AND a 10-year probability of a hip fracture = 3% OR a 10-year probability of a majorosteoporosis-related fracture = 20% based on the [place]-adapted WHO algorithm Please note that all treatment decisions require clinical judgment andconsideration of individual patient factors, including patient preferences, co- morbidities,previous drug use, risk factors not captured in the FRAX model (e.g., frailty, falls, vitaminD deficiency, increased bone turnover, interval significant decline in bone density) andpossible under- or over-estimation of fracture risk by FRAX. Optional alternative screening schedule based on [facility]ure Bae., [facility] for patients with osteopenia (based on hip BMD T-score) is as follows: * advanced osteopenia (T scores -2.00 to -2.49), BMD testing every year * moderate osteopenia (T scores -1.50 to -1.99), BMD testing every 5years mild osteopenia or normal BMD (T scores -1.50 and higher), BMD testingevery 15 years Evan Johnson MD IM DXA PROCEDURES Final Result * Colonoscopy (03/22/2021) [facility] Colonoscopy No Interpretation , Abstracted Anatomical Region Laterality Modality Other Anahy Dao MD HEALTH MAINTENANCE Final Result * Hepatitis C Screening (04/28/2012) [facility] Hepatitis C Screening Abstracted Anahy Dao MD HEALTH MAINTENANCE Final Result from Last 3 Months or Most Recently Relevant to Health Maintenance Insurance MEDICARE [facility] Care Teams Drapery Hemmer Automatic Relationship Specialty Start Date End Date Evan Johnson MD [address] [place] [address] PCP - General 08/18/1992
--- OUTSIDE RECORDS SUMMARY | 2024-12-21 18:24 | XMS_ITS | Clinical Summary ---
Author Organization [facility] Address [address] [place] [id number] Phone Care Team Providers Care Barrel Lathe Operator Name Role Phone Evan Johnson MD Primary Care Provider [phone] Allergies Active Allergy Reactions Criticality Noted Date Comments Codeine 01/18/2005 Cyclosporine Itching 05/24/2022 Epinephrine 01/18/2005 Other reaction(s): OTHER Crawly feeling Hydromorphone Hcl 12/02/2009 Other reaction(s): Headaches Lisinopril 01/18/2005 cough Meperidine Hcl 01/18/2005 Oxycodone-Acetaminophen 01/18/2005 Phenazopyridine Hcl Nausea And Vomiting 012 Propoxyphene Hcl 01/18/2005 Sulfa (Sulfonamide Antibiotics) Nausea And Vomiting 04/04/2011 Medications amLODIPine (NORVASC) 5 MG tablet Take 1 tablet by mouth every morning. TTD7.5 04/16/19 23 Active FLUoxetine (PROZAC) 40 MG capsule Take 1 capsule by mouth every morning. 04/17/19 23 Active fluticasone propionate (FLONASE) 50 mcg/actuation nasal spray 2 sprays by Nasal route daily as needed. 05/25/19 23 Active metFORMIN (GLUCOPHAGE-XR) 500 MG 24 hr tablet Take 2 tablets by mouth 2 (two) times a day. 05/21/19 23 Active omeprazole (PRILOSEC) 20 MG capsule 07/08/19 23 Active simvastatin (ZOCOR) 20 MG tablet TAKE 1 TABLET BY MOUTH EVERYDAY AT BEDTIME 04/17/19 23 Active valsartan (DIOVAN) 80 MG tablet Take 1 tablet by mouth 2 (two) times a day. 06/09/19 23 Active ASCORBIC ACID, VITAMIN C, ORAL Take 1 tablet by mouth daily. Active aspirin 81 mg chewable tablet Take 1 tablet by mouth daily. Active cholecalciferol (VITAMIN D3) 2,000 unit capsule Take 1 tablet by mouth daily. Active EMBRACE TALK TEST STRIPS Strp strips 1 each by Miscellaneous route every morning. Active amLODIPine (NORVASC) 2.5 MG tablet Take 2.5 mg by mouth. Ttd 7.5 03/14/19 24 Active metoprolol succinate (TOPROL-XL) 25 MG 24 hr tablet Take 25 mg by mouth daily. 06/04/19 24 Active tirzepatide (MOUNJARO) 5 mg/0.5 mL PnIj subcutaneous penIndications:T ype 2 diabetes mellitus with peripheral neuropathy Inject 0.5 mL (5 mg total) under the skin once a week. 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 acuna 08/14/06 Benign essential hypertension 01/18/2005 Assessment & Plan (05/14/2024 6:53 PM EDT): Well controlled today. Assessment & Plan (10/17/2023 12:51 PM EDT): Well controlled today. 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 She is not using any medications to cause hypoglycemia. Will maintain her regimen. Continue to work on eating healthy and being active. To call or message with any issues managing her glucose levels. Up to date with ophtho. Will do labs with PCP. I have maintained a long-term, longitudinal relationship with this patient, overseeing care of chronic conditions, including diabetes. This care relationship has significantly influenced my decision-making and treatment plans during today's encounter. Assessment & Plan (08/13/2024 11:55 AM EDT): Control is good based upon the patient's SMBG readings and her A1C of 6.6%. She is not using any medications to cause hypoglycemia. Will maintain her regimen. Continue to work on eating healthy and being active. To call or message with any issues managing her glucose levels. Up to date with opho. I have maintained a long- term, longitudinal relationship with this patient, overseeing care of chronic conditions, including diabetes. This care relationship has significantly influenced my decision-making and treatment plans during today's encounter. Assessment & Plan (05/14/2024 6:54 PM EDT): Control remains good. [facility], some mild nausea, finds tolerable @ present. Continue to work on eating healthy & keeping active. To call or send in BG with problems with glycemic control. Up to date with opho. Mark/ofelia up to date, stacey Assessment & Plan (01/14/2024 2:56 PM EST): Control is reasonable/good based upon the patient's SMBG readings and her A1C of 6.5%. She is not using any medications to cause hypoglycemia. Will maintain her regimen. Continue to work on eating healthy and being active. To call or message with any issues managing her glucose levels. Up to date with opho. Labs reviewed during visit. I have maintained a long-term, longitudinal relationship with this patient, overseeing care of chronic conditions, including diabetes. This care relationship has significantly influenced my decision-making and treatment plans during today's encounter. Assessment & Plan (10/17/2023 12:55 PM EDT): Control remains good. Has lost some weight with shift to mounjaro, some nausea, finds tolerable @ present. Continue to work on eating healthy & keeping active. To call or send in BG with problems with glycemic control. Up to date with ophtho. Umalb/creat up to date, @ upper limit of normal, which should be 30, not 20. BP well controleld, on ARB, etc. Foot & nail care good. Assessment & Plan (07/12/2023 1:51 PM EDT): Control is reasonable based upon the patient's SMBG readings and her last A1C of 7.2%. She is not using any medications to cause hypoglycemia. With her A1C going slightly higher, will resend her prescription for 3 mg of trulicity weekly rather than the 1.5 mg weekly (has been taking 2- 0.75 mg pens). Continue to work on eating healthy and being active. To call or message with any issues managing her glucose levels. Up to date with opho. Labs reviewed during visit. Labs ordered to be done prior to next visit with Dr Montgomery. I have maintained a long-term, longitudinal relationship with this patient, overseeing care of chronic conditions, including diabetes. This care relationship has significantly influenced my decision-making and treatment plans during today's encounter. Assessment & Plan (04/15/2023 9:11 AM EST): Control is good based upon the patient's SMBG readings and her recent A1C of 6.9%. She is not using any medications to cause hypoglycemia. She is due for a refill of her trulicity 1.5 mg. Will send a prescription for the 1.5 mg dose but will also send a prescription for the 0.75 mg dose just in case the pharmacy is unable to get the 1.5 mg dose they can give her the 0.75 mg. Continue to work on eating healthy and being active. To call or message with any issues managing her glucose levels. [facility] Labs ordered to do prior to next visit Assessment & Plan (01/17/2023 5:56 PM EST): Control has been reasonable. HbA1c slightly lower after increase in trulicity dose. Advised her to not have HbA1c done any more often than every 3 months, if PCP does, send us copy, do not repeat & vice versa. Labs were forwarded to PCP. Continue to work on eating healthy & keeping active. To call or send in BG with problems with glycemic control. Up to date with opho. Umalb/creat up to date, normal. BP under reasonable control. Assessment & Plan (10/10/2022 9:03 AM EDT): Control is reasonable based upon the patient's SMBG readings and her recent A1C of 7%. She is not using any medications to cause hypoglycemia. She has not been great with her diet over the summer resulting in the weight gain and higher glucose levels. She is going to work on improving her diet to help improve her glucose control. Continue to work on eating healthier and being active. To call with any issues managing her glucose levels. Up to date with [facility]. Reviewed recent labs with the patient. Will order labs to be done prior to next visit Assessment & Plan (07/09/2022 12:36 PM EDT): Control good based on HbA1c. Fasting BG running a bit high. Continue to work on eating healthy & keeping active. To call or send in BG with problems with glycemic control. Up to date with opho. Foot & nail care good. BP under reasonable control. Will obtain records from [facility]. To repeat labs prior to follow up. Long-term current use of inj ectable noninsulin antidiabetic medication Assessment & Plan (01/14/2024 2:54 PM EST): Will maintain her mounjaro dosing Encounters Date Type Department Care Team Description 11/04/2024 9:20 AM EDT Office Visit [facility] [address] [place] [address] [place] [address] Melita Price PA-C Type 2 diabetes mellitus with peripheral neuropathy (Primary Dx) from Last 3 Months Family History Medical History Relation Comments Diabetes mellitus Maternal Aunt borderline Diabetes mellitus Mother borderline Relation Status Comments Maternal Aunt Alive Mother Social History Tobacco Use Types Packs/Day Years Used Date Smoking Tobacco: Former Cigarettes 1 25 1 958 - 1982 Passive Smoke Exposure: Past Smokeless Tobacco: Never Tobacco Cessation:Counseling Given: Not Answered Alcohol Use Standard Drinks/Week Comments Not Currently 0 (1 standard drink = 0.6 oz pur e alcohol) Education Answer Date Recorded Are you interested in more education? Not on saji e 06/16/2022 Are you concerned about learning? Not on file 06/16/2022 No 06/16/2022 No 06/16/2022 Digital Access Answer Date Recorded No 07/11/2022 No 07/11/2022 Reliable internet access at home? Not on file 07/11/2022 Device with a working camera? Not on file Comments Unknown Sex and Gender Information Value Date Recorded Sex Assigned at Not on file Legal Sex Female 10:04 AM EST Gender Identity Not on file Sexual Orientation Not on file Last Filed Vital Signs Vital Sign Reading Time Taken Comments Blood Pressure 122/64 11/04/2024 9:14 AM EDT Pulse 71 11/04/2024 9:14 AM EDT Temperature 36.6 C (97.9 F) 02/09/2023 11:21 AM EST Respiratory Rate 18 02/09/2023 11:21 AM EST Oxygen Saturation 99% 11/04/2024 9:14 AM EDT Inhaled Oxygen Concentration - - Weight 76.7 kg (169 lb) 11/04/2024 9:14 AM EDT Height 170.2 cm (5' 7.01 ) 11/04/2024 9:14 AM ED T Body Mass Index 26.46 11/04/2024 9:14 AM EDT Plan of Treatment Upcoming Encounters Date Type Department Care Team (Late st Contact Info) Description 01/21/2025 3:00 PM EST Office Visit [facility] [address] [place] [address] Vilma Montgomery MD [address] [place] [address] 04/30/2025 11:00 AM EDT Office Visit [facility] [address] [place] [address] Vilma Montgomery MD [address] [place] [address] [address] [place] [address] [email or web address] 05/05/2025 9:20 AM EDT Office Visit [facility] [address] [place] [address] Melita Price PA-C [address] [place] [phone] [email or web address] Health Maintenance Due Date Last Done Comments DEPRESSION SCREENING 1957 HEPATITIS C SCREENING 08/09/1963 ZOSTER VACCINES (1 of 2) 08/09/1995 OSTEOPOROSIS SCREENING INITIAL (ONE-TIME) 2010 RSV VACCINE (1 - 1-dose 75+ series) 2020 DIABETIC EYE EXAM 07/06/2022 INFLUENZA VACCINE (#1) 2024 , 11/22/2022, 12/29/2021, Additional history exists COVID-19 VACCINE (2024- season) 2024 01/04/2021, 04/14/2020 HEMOGLOBIN A1C 12/01/2024 06/01/2024, 12/19, 12/31/2023, Additional history exists CREATININE LEVEL 12/30/2024 12/31/2023, , 07/09/2023, Additional history exists POTASSIUM LEVEL 12/30/2024 12/31/2023, 09/19, 07/09/2023, Additional history exists BLOOD PRESSURE 05/04/2025 11/04/2024 Adult Td,Tdap Booster 09/12/2027 09/11/2017, 007 PNEUMOCOCCAL VACCINES (50+ years) Completed 11/22/2022, 05/06/2012 SMOKING STATUS SCREENING (Once After 26 Yrs) Completed 11/04/2024 HEPATITIS A VACCINES Aged Out No long er eligible based on patient's age to complete this topic HIB VACCINES Aged Out No longer eligi ble based on patient's age to complete this topic MENINGOCOCCAL VACCINES (ACWY) Aged Out No longer eligible based on patient's age to complete this topic MENINGOCOCCAL VACCINES (B) Aged Out N o longer eligible based on patient's age to complete this topic Medical Devices Not on file Procedures Procedure Name Priority Date/Time Associated Diagnosis Comments HEMOGLOBIN A1C Routine 12/31/2023 9:25 AM EST Type 2 diabetes mellitus with peripheral neuropathy BASIC METABOLIC PANEL (BMP) Routine 12/31/2023 9:25 AM EST Type 2 diabetes mellitus with peripheral neuropathy from Last 3 Months or Most Recently Relevant to Health Maintenance Results * (ABNORMAL) Hemoglobin A1c (12/31/2023 9:25 AM EST) HEMOGLOBIN A1C 6.5(H) 4.3 - 5.8 % [facility] Blood 12/31/2023 9:25 AM EST 12/31/2023 9:29 AM EST Vilma Montgomery MD LAB BLOOD BKR ORDERABL ES Final Result [facility] [address] [place] [address] * (ABNORMAL) Basic metabolic panel (12/31/2023 9:25 AM EST) SODIUM 141 133 - 146 mmol/L [facility] CHLORIDE 103 96 - 108 mmol/L [facility] POTASSIUM 4.7 3.3 - 5.1 mmol/L [facility] CO2 28 21 - 35 mmol/L [facility] BUN 23(H) 6 - 19 mg/dL [facility] CREATININE 0.80 0.5 - 1.5 mg/dL [facility] GLUCOSE 125(H) 70 - 99 mg/dL [facility] CALCIUM 9.6 8.4 - 10.3 mg/dL [facility] EGFR 75 >59 mL/min/1.7 3m2 [facility] Comment:Estimated glomerular filtration rate calculated using the CKD-EPI refit equation. ANION GAP 15 10 - 20 mmol/L [facility] Blood 12/31/2023 9:25 AM EST 12/31/2023 9:27 AM EST Vilma Montgomery MD LAB BLOOD BKR ORDERABL ES Final Result [facility] [address] [place] [address] from Last 3 Months or Most Recently Relevant to Health Maintenance Insurance MEDICARE PART A & B [employer] ENHANCE SUPPLEMENT MEDICARE PART A & B [facility] MEDICARE ENHANCE SUPPLEMENT MEDICARE PART A & B [facility] MEDICARE ENHANCE SUPPLEMENT MEDICARE PART A & B [facility] [place] [id number] MEDICARE PART A & B [facility] MEDICARE ENHANCE SUPPLEMENT MEDICARE PART A & B [employer] MEDIC[employer] ENHANCE SUPPLEMENT Care Teams Barrel Lathe Operator Relationship Specialty Start Date End Date Evan Johnson MD [address] [place] [address] PCP - General 04/20/22 Additional Source Comments The information contained in this document represents components of the legal health record. It is not the complete legal health record.[facility]
--- OUTSIDE RECORDS SUMMARY | 2024-12-21 18:24 | XMS_ITS | Encounter Summary ---
Author Organization [facility] Address [address] [place] [address] Care Team Providers Care Museum Librarian Name Role Phone Evan Johnson MD Primary Care Provider [phone] Reason for Visit * Reason Onset Date Comments Abdominal Pain 12/21/2024 Encounter Details Date Type Department Care Team (Late st Contact Info) Description 12/21/2024 Telephone Adult Medicine [facility] [address] [place] [address] Evan Johnson MD [address] [place] [id number] Social History Tobacco Use Types Packs/Day Years [...] on file documented as of this encounter Progress Notes * Kia Currie RN - 12/21/2024 11:11 AM EST Pt has had diverticulitis with abscess and colectomy . Now c/o LLQ pain x 2 days , has pain with palpation and when she stands up straight, she is walking hunched over Pt has no chest pain or SOB, has nausea ( on monjaro so she is not sure if this is from the meds ( no vomiting, taking fluids and trying to let her belly rest , has had loose stools , no black of bloody stools pt is not dizzy or weak . No fever , pain is 4/10 if she is still Pt to go to the ed now * Esther Kaminski - 12/21/2024 10:54 AM EST Patient call requires triage: Symptoms patient is presenting: lower left abdominal pain, lose stool How long has patient had these symptoms?: few days For ALL patients calling to schedule any appointment (routine, sick visit, follow up, consult, etc.) in the outpatient setting please ask the following questions: Do you have fever of higher than 101, sore throat with difficulty swallowing or severe shortness ofbreath? no If YES to any of these above symptoms, send a message to triage and do not book. Red dot. If no, an audio or video visit should be booked. Have you had close contact with someone with Coronavirus in the last 14 days? no Have you traveled abroad? no Have you traveled recently to another state outside of [place], [place], [place], [place], [place], [place], [place]? no o If yes, did you quarantine for 14 days or have a negative covid test? no If yes to any of the above, patient is not to be scheduled in office until after 14 day quarantine or negative covid test. If pain or injury related was it due to an accident at work or from a motor vehicle accident? If yes, date of accident/Injury: No If yes, gather 3rd alliance party insurance information Third Democrat Information: not applicable PCP: Evan Johnson MD Payor: MEDICARE / Plan: MEDICARE PART A & B / Product Type: Medicare / documented in this encounter Plan of Treatment Upcoming Encounters Date Type Department Care Team (Late st Contact Info) Description 03/17/2025 10:15 AM EST Office Visit Adult Medicine [facility] [address] [place] [address] Siddharth Akins NP [address] [place], [place] 10/07/2025 10:00 AM EDT Office Visit Pulmonology - [address] [place] [id number] Abby Green MD [address] [place] [address] documented as of this encounter Visit Diagnoses Not on filedocumented in this encounter Care Teams Museum Librarian Relationship Specialty Start Date End Date Evan Johnson MD [address] [place] [address] PCP - General 08/18/1992 documented as of this encounter
--- OUTSIDE RECORDS SUMMARY | 2024-12-21 18:24 | XMS_ITS ---
Author Name [facility] Organization Unknown Care Team Organization Name Specialty Phone Email Start Date End [facility] ACO 10/07/2024 [facility] Termed, PROVIDER Primary Care 04/25/202209/18 [facility] 12/26/2021 10/07/2023
[2024-12-21 18:29] LABS: Appearance Urine Clear; Glucose Urine UA Negative (Negative); PH 7.0 (5.0-9.0); Specific Gravity - Urine 1.010 (1.005-1.025); UMIC TRIGGER UACC YES
[2024-12-21 18:32] LABS: UACC Culture Trigger YES
[2024-12-21] MEDS: iohexoL 350 MG/ML 100 ML INFUS..BTL IV (19:22)
[2024-12-21 20:47] VITALS: BP 141/74; PULSE 72; RESP 16; TEMP 36.8; O2SAT 97
== END 2024-12-21 20:48 | disposition home or self-care (01) ==
PROVIDERS: Physician Assistant Medical; Emergency Provider Emergency Medicine; PCP Internal Medicine
DX: K63.89 Other specified diseases of intestine (principal); R10.32 Left lower quadrant pain; I10 Essential (primary) hypertension; Z87.19 Personal history of other diseases of the digestive system; Z79.899 Other long term (current) drug therapy
CPT/HCPCS: 36415; 74177; 80053; 81001; 83735; 85025; 87086; 99284; 99285; Q9967